=== PATIENT | female | born 1960 | race African-American/Black ===

== ENCOUNTER 2017-12-14 20:51 | Emergency (ER) | payer BC, OTHER ==
[~2017-12-14] VITALS: Ht 167.6 cm; Wt 90.0 kg
[2017-12-14] MEDS ORDERED: ACETAMINOPHEN 500MG TABLET PO ONE (23:00)
[2017-12-15 00:19] LABS: BASOPHILS % 0.8 % (0.0-2.0); EOSINOPHILS % 3.6 % (0.0-5.0); HEMATOCRIT. 38.5 % (36.0-48.0); HEMOGLOBIN. 12.7 g/dL (12.0-16.0); LYMPHOCYTES % 34.5 % (20.0-50.0); MEAN CORPUSCULAR HEMOGLOBIN 28.1 pg (28.0-32.0); MEAN CORPUSCULAR VOLUME 85.2 fL (81.0-99.0); MONOCYTES % 9.9 % (2.0-8.0); NEUTROPHILS % 51.2 % (40.0-76.0); PLATELET 249 x1000/uL (130-400); RED BLOOD CELL COUNT 4.51 mill/uL (4.2-5.4); RED CELL DISTRIBUTION WIDTH 13.1 % (11.6-14.6)
[2017-12-15 00:24] LABS: CHLORIDE 109 mEq/L (98-107)
[2017-12-15] MEDS ORDERED: IOHEXOL-300 100 ML BOTTLE ONE (01:25)
[2017-12-15 04:52] VITALS: BP 130/70
== END 2017-12-15 04:53 | disposition home or self-care (01) ==
LOC: ER 21:00
DX: S16.1XXA Strain of muscle, fascia and tendon at neck level, initial encounter (principal); S20.212A Contusion of left front wall of thorax, initial encounter; S40.022A Contusion of left upper arm, initial encounter; M54.89 Other dorsalgia; R51 Headache; R03.0 Elevated blood-pressure reading, without diagnosis of hypertension; V49.40XA Driver injured in collision with unspecified motor vehicles in traffic accident, initial encounter; Y93.89 Activity, other specified; Y92.410 Unspecified street and highway as the place of occurrence of the external cause
CPT/HCPCS: 36415; 70450; 71260; 72125; 73060; 74177; 80053; 85025; 99285; Q9967

== ENCOUNTER 2018-07-09 06:32 | Emergency (ER) | payer OTHER ==
[~2018-07-09] VITALS: Ht 162.6 cm; Wt 86.0 kg
[2018-07-09] MEDS ORDERED: ASPIRIN 81MG TABLET PO ONE (07:45)
[2018-07-09] MEDS ORDERED: MAGNESIUM/ALUMINUM HYDROXIDE/SIMETHICONE 30ML UDC PO ONE (07:45)
[2018-07-09] MEDS ORDERED: VISCOUS LIDOCAINE 2% 15 ML UDC PO ONE (07:45)
[2018-07-09 08:16] LABS: HEMATOCRIT. 38.9 % (36.0-48.0); HEMOGLOBIN. 12.7 g/dL (12.0-16.0); LYMPHOCYTES % 31.2 % (20.0-50.0); MEAN CORPUSCULAR HEMOGLOBIN 28.4 pg (28.0-32.0); MEAN CORPUSCULAR VOLUME 86.5 fL (81.0-99.0); MEAN PLATELET VOLUME 9.5 fl (7.4-10.4); NEUTROPHILS % 55.8 % (40.0-76.0); PLATELET 236 x1000/uL (130-400); RED BLOOD CELL COUNT 4.49 mill/uL (4.2-5.4); RED CELL DISTRIBUTION WIDTH 15.4 % (11.6-14.6)
[2018-07-09 08:22] LABS: CHLORIDE 107 mEq/L (98-107)
[2018-07-09 09:51] LABS: CLARITY URINE CLEAR (CLEAR); COLOR URINE ORANGE (YELLOW); KETONES URINE NEGATIVE (NEGATIVE); LEUKOCYTE ESTERASE URINE 2+ (NEGATIVE); OCCULT BLOOD URINE NEGATIVE (NEGATIVE); PROTEIN URINE NEGATIVE (NEGATIVE); SPECIFIC GRAVITY URINE 1.011 (1.005-1.030)
[2018-07-09 11:00] LABS: NITRITE URINE NEGATIVE (NEGATIVE)
[2018-07-09] MEDS ORDERED: IOHEXOL-300 100 ML BOTTLE ONE (12:44)
[2018-07-09 14:08] VITALS: BP 142/69
== END 2018-07-09 14:13 | disposition home or self-care (01) ==
LOC: ER 06:32
DX: K81.9 Cholecystitis, unspecified (principal); N39.0 Urinary tract infection, site not specified; Z88.1 Allergy status to other antibiotic agents; Z88.5 Allergy status to narcotic agent
CPT/HCPCS: 36415; 71045; 74177; 80053; 81003; 84484; 85025; 93005; 99284; Q9967; Z7610

== ENCOUNTER 2018-12-29 01:57 | Emergency (ER) | payer OTHER ==
[~2018-12-29] VITALS: Ht 162.6 cm; Wt 84.0 kg
[2018-12-29] MEDS: MORPHINE SULFATE 4 MG/ML CPJ (NOT FOR IM USE) IV STA (02:42)
[2018-12-29] MEDS: ONDANSETRON HCL 4MG/2ML INJ IV STA (03:51)
[2018-12-29 03:55] LABS: BASOPHILS % 0.8 % (0.0-2.0); EOSINOPHILS % 2.1 % (0.0-5.0); HEMATOCRIT. 38.7 % (36.0-48.0); HEMOGLOBIN. 12.8 g/dL (12.0-16.0); LYMPHOCYTES % 26.3 % (20.0-50.0); MEAN CORPUSCULAR HEMOGLOBIN 29.3 pg (28.0-32.0); MEAN CORPUSCULAR VOLUME 88.4 fL (81.0-99.0); MEAN PLATELET VOLUME 9.4 fl (7.4-10.4); MONOCYTES % 7.5 % (2.0-8.0); NEUTROPHILS % 63.3 % (40.0-76.0); PLATELET 209 x1000/uL (130-400); RED BLOOD CELL COUNT 4.38 mill/uL (4.2-5.4); RED CELL DISTRIBUTION WIDTH 14.9 % (11.6-14.6)
[2018-12-29 04:00] LABS: CHLORIDE 105 mEq/L (98-107)
[2018-12-29 04:05] LABS: CLARITY URINE CLOUDY (CLEAR); COLOR URINE YELLOW (YELLOW); KETONES URINE TRACE (NEGATIVE); LEUKOCYTE ESTERASE URINE 3+ (NEGATIVE); NITRITE URINE NEGATIVE (NEGATIVE); OCCULT BLOOD URINE TRACE (NEGATIVE); PH URINE 7.5 (4.5-8.0); PROTEIN URINE NEGATIVE (NEGATIVE); SPECIFIC GRAVITY URINE 1.027 (1.005-1.030); UROBILINOGEN URINE 0.2 E.U./dL (0.2-1.0)
[2018-12-29] MEDS: KETOROLAC 15MG/ML VIAL IV ONE (04:12)
[2018-12-29] MEDS: SODIUM CHLORIDE 0.9% 1,000 ML IV ONE (04:13)
[2018-12-29] MEDS: CEFTRIAXONE 1 G PREMIX 50 ML IV ONE (06:36)
[2018-12-29 08:00] VITALS: BP 114/54
== END 2018-12-29 08:28 | disposition short-term general hospital (02) ==
LOC: ER 01:57
DX: N12 Tubulo-interstitial nephritis, not specified as acute or chronic (principal); N17.9 Acute kidney failure, unspecified; Z88.5 Allergy status to narcotic agent; Z88.1 Allergy status to other antibiotic agents
CPT/HCPCS: 36415; 76705; 80053; 81003; 83605; 83690; 84484; 85025; 87040; 87077; 87086; 93005; 96361; 96365; 96375; 99285; J1885; J2405; J7030; Z7610; J2270

== ENCOUNTER 2020-02-17 16:37 | Emergency (ER) | payer OTHER ==
[~2020-02-17] VITALS: Ht 162.6 cm; Wt 91.0 kg
[2020-02-17 16:48] VITALS: BP 132/79
== END 2020-02-17 17:35 | disposition home or self-care (01) ==
LOC: ER 16:37
DX: H01.9 Unspecified inflammation of eyelid (principal); I10 Essential (primary) hypertension; E03.9 Hypothyroidism, unspecified; T78.40XA Allergy, unspecified, initial encounter; X58.XXXA Exposure to other specified factors, initial encounter; Z88.3 Allergy status to other anti-infective agents; Z88.6 Allergy status to analgesic agent
CPT/HCPCS: 99282

== ENCOUNTER 2023-06-18 06:48 | Emergency (ER) | payer OTHER ==
[~2023-06-18] VITALS: Ht 165.1 cm; Wt 86.0 kg
[2023-06-18 07:01] VITALS: O2SAT 96
[2023-06-18 08:21] VITALS: BP 119/65; PULSE 68; RESP 18; TEMP 98.2
== END 2023-06-18 08:22 | disposition home or self-care (01) ==
LOC: ER 06:48
DX: J06.9 Acute upper respiratory infection, unspecified (principal); Z88.5 Allergy status to narcotic agent; Z88.8 Allergy status to other drugs, medicaments and biological substances
CPT/HCPCS: 99281